=== PATIENT | male | born 1965 | race Hispanic/Latino ===

== ENCOUNTER 2024-12-02 08:41 | Emergency (ER) | payer OTHER ==
[~2024-12-02] VITALS: Ht 182.9 cm; Wt 89.8 kg
[2024-12-02 08:47] VITALS: PULSE 86; RESP 18; TEMP 98.7; O2SAT 100
[2024-12-02] MEDS ORDERED: NEURONTIN100 MG PO (09:12)
[2024-12-02] MEDS: DEXAMETHASONE 4 MG TAB PO STA (09:21)
[2024-12-02] MEDS: ACETAMINOPHEN 325 MG TAB PO ONE (09:22)
[2024-12-02] MEDS: KETOROLAC TROMETHAMINE 30 MG/ML VIAL IM STA (09:24)
== END 2024-12-02 09:44 | disposition home or self-care (01) ==
LOC: ER 08:46
DX: M54.41 Lumbago with sciatica, right side (principal)
CPT/HCPCS: 99282; J1885; J8540